=== PATIENT | female | born 1990 | race Caucasian/White ===

== ENCOUNTER 2024-10-17 11:05 | Emergency (ER) | payer BC, SELFPAY ==
[2024-10-17 11:12] VITALS: BP 132/81
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
[2024-10-17 12:00] VITALS: BP 104/74
== END 2024-10-17 12:36 | disposition home or self-care (01) ==
LOC: EMR 11:05
PROVIDERS: EMERGENCY PHYSICIAN Emergency Medicine; FAMILY PHYSICIAN Student in an Organized Health Care Education/Training Program
DX: O9A.212 Injury, poisoning and certain other consequences of external causes complicating pregnancy, second trimester (principal); T25.222A Burn of second degree of left foot, initial encounter; X12.XXXA Contact with other hot fluids, initial encounter; Z3A.20 20 weeks gestation of pregnancy
CPT/HCPCS: 16020; 99282